=== PATIENT | female | born 1935 | race Two or more races ===

== ENCOUNTER 2023-08-30 13:49 | Inpatient (IN) | payer OTHER ==
[~2023-08-30] VITALS: Ht 160 cm; Wt 61.2 kg
--- NOTE | 2023-08-30 14:09 | NUR ---
SE RECIBE FEMINA ALERTA EN PERSONA EN AMBULANCIA EN COMPANIA DE FAMILIAR QUIEN REFIERE PTE TUVO 3 EPISODIOS DE CONVULSION EN EL HOGAR. SE MIDEN S/V Y SE REALIZA EKG EL CUAL ES EVALUADO POR . SE UBICA PTE EN CANDY #13.
[2023-08-30] MEDS ORDERED: CARDURA XL4 MG PO (14:13)
[2023-08-30] MEDS ORDERED: JANUVIA50 MG PO (14:13)
[2023-08-30] MEDS ORDERED: ZOCOR20 MG PO (14:13)
[2023-08-30] MEDS ORDERED: GEODON40 MG PO (14:14)
[2023-08-30] MEDS ORDERED: PEPCID AC20 MG PO (14:14)
[2023-08-30] MEDS ORDERED: RIVASTIGMINE1 EAC2 TD (14:14)
[2023-08-30] MEDS ORDERED: LORazepam 2 MG/ML VIAL IM ONE (15:30)
--- NOTE | 2023-08-30 15:38 | NUR ---
SE ORIENTA FAMILIAR SOBRE TX MEDICO EL CUAL REFIERE ENTENDER.SE LE EXTRAEN MUESTRAS BAJO MEDIDAS ASEPTICAS,SE CANALIZA Y SE ADMINISTRAN MEDICAMENTOS MELODY ORDEN MEDICA.SE NOTIFICA CT PENDIENTE.
[2023-08-30 16:14] LABS: HEMATOCRIT 36.2 % (36.0-45.00); HEMOGLOBIN 12.2 g/dL (12.0-15.00); MEAN CELL VOLUME 86.3 fL (80.00-100.00); MEAN CORPUSCULAR HEMOGLOBIN 29.1 pg (27.00-32.0); MEAN CORPUSCULAR HGB CONC 33.8 g/dl (32.0-36.0); PLATELET COUNT 278 K/uL (150-450); RED CELL DISTRIBUTION WIDTH 15.1 % (11.5-14.5)
[2023-08-30 16:42] LABS: CALCIUM 9.2 mg/dL (8.5-10.1); CREATININE SERUM 1.2 mg/dL (0.55-1.02); GFR 42.3; POTASSIUM 3.84 mEq/L (3.5-5.1)
[2023-08-30 17:50] LABS: ALT/SGPT 12 U/L (12-78); AST/SGOT 13 U/L (15-37); LDH 165 U/L (84-246); PHOSPHOKINASE CREATININE 43 U/L (26-192)
[2023-08-30] MEDS ORDERED: SODIUM CHLORIDE 0.45 % 1,000 ML IV SCH (18:45)
[2023-08-30] MEDS ORDERED: DEXTROSE 50 % IN WATER 0.5 G/ML DISP.SYRIN IV PRN (19:00)
[2023-08-30] MEDS ORDERED: LORazepam 2 MG/ML VIAL IV PUSH PRN (19:00)
[2023-08-30] MEDS ORDERED: INSULIN LISPRO 1,000 UNIT/10 ML UNITS SUBCUTANEO PRN (19:00)
[2023-08-30] MEDS ORDERED: ENALAPRILAT DIHYDRATE 1.25 MG/ML VIAL IV PRN (19:00)
[2023-08-30] MEDS ORDERED: LevETIRAcetam 500 MG/5 ML VIAL IV STA (19:14)
[2023-08-30 20:30] LABS: PH,URINE 6.5 (5.0-8.0); URINE APPEARANCE Turbid; URINE BILIRRUBIN Negative (NEGATIVE); URINE BLOOD Moderate; URINE COLOR Yellow; URINE GLUCOSE Negative (NEGATIVE); URINE LEUKOCYTE Large; URINE NITRATE Positive; URINE PROTEIN 30 (NEGATIVE); URINE UROBILINOGEN 0.2 E.U./dl
[2023-08-30 20:33] LABS: URINE EPITHELIAL CELLS 116.2 uL (0.0-38.8); URINE RBC 38.9 uL (0.0-20.8)
[2023-08-30 20:38] LABS: INR 1.21; PARTIAL THROMBOPLASTIN TIME 26.4 SECONDS (22.0-34.0); PROTHROMBIN TIME 12.5 SECONDS (9.0-11.5)
[2023-08-30 20:48] LABS: C-REACTIVE PROTEIN 1.29 MG/DL (0.00-0.29); MAGNESIUM 1.2 mg/dL (1.8-2.4)
[2023-08-30 20:50] LABS: URINE BACTERIA > 9821.5 uL (0.0-1933); URINE WBC > 5548.3 uL (0.0-23.2)
[2023-08-30] MEDS ORDERED: MAGNESIUM SULFATE IN WATER 4 GM/100 ML PIGGYBACK IV STA (22:38)
[2023-08-31] MEDS ORDERED: DEXTROSE 50 % IN WATER 0.5 G/ML VIAL IV PRN (06:45)
[2023-08-31] MEDS ORDERED: MAGNESIUM SULFATE IN WATER 4 GM/100 ML PIGGYBACK IV STA (08:36)
[2023-08-31] MEDS ORDERED: CEFTRIAXONE SODIUM 2,000 MG VIAL IV SCH (09:00)
[2023-08-31] MEDS ORDERED: FAMOTIDINE/PF 20 MG in 0.9 % SODIUM CHLORIDE 8 ML IV PUSH SCH (09:00)
[2023-08-31] MEDS ORDERED: ENOXAPARIN SODIUM 40 MG/0.4 ML SYRINGE SUBCUTANEO SCH (09:00)
[2023-08-31] MEDS ORDERED: LevETIRAcetam 500 MG/5 ML VIAL IV SCH (09:00)
[2023-08-31] MEDS ORDERED: INSULIN LISPRO 1,000 UNIT/10 ML UNITS SUBCUTANEO PRN (11:00)
[2023-08-31] MEDS ORDERED: DOXAZOSIN MESYLATE 4 MG TABLET PO SCH (13:54)
[2023-08-31] MEDS ORDERED: RIVASTIGMINE 13.3 MG TD SCH (14:19)
[2023-08-31 16:05] LABS: CHOL HDL RATIO 2.8 (0-5.0)
[2023-08-31] MEDS ORDERED: SODIUM CHLORIDE IV SCH (17:00)
[2023-08-31] MEDS ORDERED: PATIENTS OWN MEDICATION (MEDICAMENTO EN PISO) TOP SCH (17:00)
[2023-08-31] MEDS ORDERED: AMINO ACIDS 4.25 %/DEXTROSE 5% 1,000 ML PERIFERAL SCH (17:00)
[2023-08-31] MEDS ORDERED: SIMVASTATIN 20 MG TABLET PO SCH (17:00)
[2023-08-31] MEDS ORDERED: LEVETIRACETAM IV SCH (17:00)
[2023-09-01 07:01] LABS: HEMATOCRIT 32.6 % (36.0-45.00); HEMOGLOBIN 11.3 g/dL (12.0-15.00); MEAN CELL VOLUME 84.6 fL (80.00-100.00); MEAN CORPUSCULAR HEMOGLOBIN 29.2 pg (27.00-32.0); MEAN CORPUSCULAR HGB CONC 34.5 g/dl (32.0-36.0); PLATELET COUNT 260 K/uL (150-450); RED BLOOD COUNT 3.85 M/uL (4.00-6.00); RED CELL DISTRIBUTION WIDTH 14.8 % (11.5-14.5)
[2023-09-01 07:07] LABS: ALBUMIN 2.7 gm/dL (3.4-5.0); BILIRUBIN TOTAL 0.42 mg/dL (0.3-1.2); CALCIUM 8.4 mg/dL (8.5-10.1); CREATININE SERUM 0.85 mg/dL (0.55-1.02); GFR 62.97; GLOBULINA 3.9 G/DL (2.4-3.5); MAGNESIUM 2.9 mg/dL (1.8-2.4); PHOSPHOROUS 2.5 mg/dL (2.5-4.9); POTASSIUM 3.73 mEq/L (3.5-5.1); TOTAL PROTEIN 6.6 gm/dL (6.4-8.2)
[2023-09-01] MEDS ORDERED: MINERAL OIL 30 ML BLIST.PACK PO SCH (10:29)
[2023-09-02 13:32] LABS: T4 FREE 1.11 NG/ML (0.76-1.46); TSH 2.09 uIU/mL (0.358-3.74)
[2023-09-03 06:42] LABS: HEMATOCRIT 30.2 % (36.0-45.00); HEMOGLOBIN 10.6 g/dL (12.0-15.00); MEAN CELL VOLUME 84.9 fL (80.00-100.00); MEAN CORPUSCULAR HEMOGLOBIN 29.8 pg (27.00-32.0); MEAN CORPUSCULAR HGB CONC 35.1 g/dl (32.0-36.0); PLATELET COUNT 254 K/uL (150-450); RED BLOOD COUNT 3.55 M/uL (4.00-6.00); RED CELL DISTRIBUTION WIDTH 14.2 % (11.5-14.5)
[2023-09-03 07:17] LABS: ALBUMIN 2.7 gm/dL (3.4-5.0); BILIRUBIN TOTAL 0.36 mg/dL (0.3-1.2); CALCIUM 8.1 mg/dL (8.5-10.1); CREATININE SERUM 0.67 mg/dL (0.55-1.02); GFR 82.87; GLOBULINA 3.3 G/DL (2.4-3.5); POTASSIUM 3.5 mEq/L (3.5-5.1)
[2023-09-03 07:58] LABS: PHOSPHOROUS 1.7 mg/dL (2.5-4.9)
[2023-09-03] MEDS ORDERED: NAPH,MB-DB/K PH,MBDB 1 PKT PACKET PO SCH (10:45)
[2023-09-03] MEDS ORDERED: POTASSIUM PHOS,M-BASIC-D-BASIC 18 MM in 0.9 % SODIUM CHLORIDE 250 ML IV NR (10:45)
[2023-09-03] MEDS ORDERED: LORazepam 2 MG/ML VIAL IV PRN (17:00)
[2023-09-03] MEDS ORDERED: RINGERS SOLUTION,LACTATED 1,000 ML IV SCH (18:00)
[2023-09-03] MEDS ORDERED: LOSARTAN POTASSIUM 25 MG TABLET PO NR (18:15)
[2023-09-03] MEDS ORDERED: BENZONATATE 100 MG CAPSULE PO PRN (20:30)
[2023-09-04] MEDS ORDERED: levoFLOXacin IN DEXTROSE 5 % 150 ML IV SCH (09:00)
[2023-09-04] MEDS ORDERED: LOSARTAN POTASSIUM 50 MG TABLET PO SCH (10:48)
[2023-09-04] MEDS ORDERED: ACETAMINOPHEN 500 MG GEL..CAP PO STA (11:08)
[2023-09-04] MEDS ORDERED: LABETALOL HCL 100 MG/20 ML ML IV STA (12:54)
[2023-09-04] MEDS ORDERED: AMLODIPINE BESYLATE 5 MG TABLET PO STA (16:57)
[2023-09-04] MEDS ORDERED: DOXAZOSIN MESYLATE 8 MG TABLET PO SCH (17:00)
[2023-09-04] MEDS ORDERED: LOSARTAN POTASSIUM 25 MG TABLET PO SCH (17:00)
[2023-09-05 07:44] LABS: HEMATOCRIT 36.1 % (36.0-45.00); HEMOGLOBIN 12.3 g/dL (12.0-15.00); MEAN CELL VOLUME 85.8 fL (80.00-100.00); MEAN CORPUSCULAR HEMOGLOBIN 29.4 pg (27.00-32.0); MEAN CORPUSCULAR HGB CONC 34.2 g/dl (32.0-36.0); PLATELET COUNT 317 K/uL (150-450); RED CELL DISTRIBUTION WIDTH 14.9 % (11.5-14.5)
[2023-09-05 07:49] LABS: ALBUMIN 3.1 gm/dL (3.4-5.0); BILIRUBIN TOTAL 0.38 mg/dL (0.3-1.2); CREATININE SERUM 0.82 mg/dL (0.55-1.02); GFR 65.64; GLOBULINA 3.8 G/DL (2.4-3.5); MAGNESIUM 1.9 mg/dL (1.8-2.4); PHOSPHOROUS 2.9 mg/dL (2.5-4.9); POTASSIUM 4.11 mEq/L (3.5-5.1); TOTAL PROTEIN 6.9 gm/dL (6.4-8.2)
[2023-09-05] MEDS ORDERED: SODIUM CHLORIDE IV SCH (09:00)
[2023-09-05] MEDS ORDERED: LEVETIRACETAM IV SCH (09:00)
[2023-09-05] MEDS ORDERED: AMLODIPINE BESYLATE 5 MG TABLET PO SCH (12:00)
[2023-09-05] MEDS ORDERED: KEPPRA1000 MG PO (14:41)
[2023-09-05] MEDS ORDERED: DOXAZOSIN MESYLA8 MG PO (14:42)
[2023-09-05] MEDS ORDERED: AMLODIPINE BESYL5 MG PO (14:42)
[2023-09-05] MEDS ORDERED: EXELON1 EACH TD (14:42)
[2023-09-05] MEDS ORDERED: COZAAR50 MG PO (14:43)
[2023-09-05] MEDS ORDERED: SIMVASTATIN20 MG PO (14:44)
[2023-09-05] MEDS ORDERED: LOSARTAN POTASSIUM 50 MG TABLET PO SCH (17:00)
[2023-09-05] MEDS ORDERED: LevETIRAcetam 10 MG/ML REDILUIDO IV SCH (21:00)
[2023-09-06] MEDS ORDERED: AMLODIPINE BESYLATE 5 MG TABLET PO SCH (09:00)
[2023-09-06] MEDS ORDERED: AMLODIPINE BESYLATE 10 MG TABLET PO SCH (09:00)
== END 2023-09-05 16:31 | disposition home or self-care (01) | DRG 101 ==
LOC: ER 13:49 → ICU-2 19:41 → SEC-K 09-02 12:08 → MEDI 09-02 13:27
PROVIDERS: Emergency Medicine; General Practice; ADMIT Internal Medicine; ATTEND Internal Medicine
PROC: B020ZZZ Computerized Tomography (CT Scan) of Brain (ICD-10-PCS; principal; 2023-08-30)
PROC: B030ZZZ Magnetic Resonance Imaging (MRI) of Brain (ICD-10-PCS; 2023-08-30)
DX: R56.9 Unspecified convulsions (principal); N17.9 Acute kidney failure, unspecified; N39.0 Urinary tract infection, site not specified; I10 Essential (primary) hypertension; E11.9 Type 2 diabetes mellitus without complications; Z79.4 Long term (current) use of insulin; F03.90 Unspecified dementia, unspecified severity, without behavioral disturbance, psychotic disturbance, mood disturbance, and anxiety; I73.9 Peripheral vascular disease, unspecified; D32.0 Benign neoplasm of cerebral meninges; G30.9 Alzheimer's disease, unspecified
CPT/HCPCS: 70544